=== PATIENT | female | born 1955 | race Caucasian/White ===

== ENCOUNTER 2018-02-07 09:18 | Emergency (ER) | payer BC ==
[2018-02-07 09:24] VITALS: RESP 16
[2018-02-07] MEDS ORDERED: SODIUM CHLORIDE 0.9% 1,000 ML IV STA (10:04)
[2018-02-07] MEDS ORDERED: MECLIZINE 12.5 MG TAB PO STA (10:08)
--- NOTE | 2018-02-07 10:09 | ED ---
General Adult HPI - General Chief complaint: Dizziness Stated complaint: Dizzy Time Seen by Provider: 02/07/18 10:02 Source: patient, RN notes reviewed Mode of arrival: ambulatory Limitations: no limitations - History of Present Illness Initial comments: Patient is 63-year-old female presented to the emergency room today with a chief complaint of dizziness. She states started this morning when she got out of bed. She states it was like the room was spinning. She states that it's worse when she stands up better when she is laying down. Patient states she's never had similar symptoms in the past. Patient denies any other complaints. She states sitting down here in the emergency room the dizziness has improved some but is still seems to be present. Patient denies any recent fever, chills, shortness of breath, chest pain, back pain, abdominal pain, nausea or vomiting, numbness or tingling, dysuria or hematuria, constipation or diarrhea, headaches or visual changes, or any other complaints. - Related Data Home Medications Medication Instructions Recorded Confirmed Aspirin [Adult Low Dose Aspirin EC] 81 mg PO DAILY 02/07/18 02/07/18 Cholecalciferol (Vitamin D3) 2,000 unit PO DAILY 02/07/18 02/07/18 [Vitamin D3] Allergies Allergy/AdvReac Type Severity Reaction Status Date / Time Sulfa (Sulfonamide Allergy Unknown Verified 02/07/18 10:11 Antibiotics) Review of Systems ROS Statement: Those systems with pertinent positive or pertinent negative responses have been documented in the HPI. ROS Other: All systems not noted in ROS Statement are negative. Past Medical History Past Medical History: No Reported History Additional Past Surgical History / Comment(s): cyst taken from back Past Psychological History: No Psychological Hx Reported Smoking Status: Never smoker Past Alcohol Use History: None Reported Past Drug Use History: None Reported General Exam - General Exam Comments Initial Comments: General: The patient is awake and alert, in no distress, and does not appear acutely ill. Eye: Pupils are equal, round and reactive to light. Extra-ocular movements are intact. No nystagmus. There is normal conjunctiva bilaterally. No signs of icterus. Ears, nose, mouth and throat: There are moist mucous membranes and no oral lesions. Neck: The neck is supple, there is no tenderness or JVD. Cardiovascular: There is a regular rate and rhythm. No murmur, rub or gallop is appreciated. Respiratory: Lungs are clear to auscultation, respirations are non-labored, breath sounds are equal. No wheezes, stridor, rales, or rhonchi. Musculoskeletal: Normal ROM, no tenderness. Sensation intact. Neurological: A&O x 3. CN II-XII intact, There are no obvious motor or sensory deficits. Coordination appears grossly intact. Speech is normal. Skin: Skin is warm and dry and no rashes or lesions are noted. Psychiatric: Cooperative, appropriate mood & affect, normal judgment. Limitations: no limitations Course Vital Signs 02/07/18 02/07/18 02/07/18 09:22 11:14 12:18 Temperature 97.4 F L Pulse Rate 82 86 Pulse Rate [ 81 Sitting] Pulse Rate [ 84 Standing] Pulse Rate [ 81 Supine] Respiratory 16 16 Rate Blood Pressure 154/74 171/83 Blood Pressure 150/87 [Sitting] Blood Pressure 171/85 [Standing] Blood Pressure 149/82 [Supine] O2 Sat by Pulse 97 Oximetry 02/07/18 02/07/18 13:38 15:08 Temperature Pulse Rate 88 82 Pulse Rate [ Sitting] Pulse Rate [ Standing] Pulse Rate [ Supine] Respiratory 16 16 Rate Blood Pressure 156/84 158/84 Blood Pressure [Sitting] Blood Pressure [Standing] Blood Pressure [Supine] O2 Sat by Pulse 100 98 Oximetry - Reevaluation(s) Reevaluation #1: 02/07/18 12:00 Patient was seen here the emergency room by Dr. North recommended repeat troponin. Patient resting comfortably. 02/07/18 14:30 Patient was seen here in the emergency room by Dr. North who recommended giving 25 mg losartan for elevated blood pressure. Emergency room. Patient still experiencing some dizziness. Will have CT head performed. Currently awaiting second troponin. EKG Findings - EKG Comments: EKG Findings:: First EKG performed at 1010: Shows normal sinus rhythm at 82 beats per minute. MT interval 162. QRS is 76. QT/QTC 376/439. No acute ST changes. Second EKG performed at 1428: Shows normal sinus rhythm at 78 beats per minute. MT interval is 158. QRS is 74. QT/QTC 358/408. No acute change. Medical Decision Making - Medical Decision Making Patient reexamined at this time shows no signs of distress resting comfortably. She's been up ambulating in the emergency room walking back and forth no dizziness no lightheadedness. His feeling well. Repeat EKG shows normal sinus rhythm compared to previous here in the emergency room. Repeat troponin was negative. CT of the brain negative. Case was discussed with attending physician Dr. Paz. Case was also discussed and seen here in the emergency room by Dr. North believes that his symptoms may be due to mildly elevated blood pressure in the emergency room and was given losartan. Patient discharged home with a prescription and advised to follow-up with Dr. North over the next week. - Lab Data Result diagrams: 02/07/18 09:55 18 09:55 Lab Results 02/07/18 02/07/1818 Range/Units 09:55 09:55 09:55 WBC 7.3 (3.8-10.6) k/uL RBC 4.69 (3.80-5.40) m/uL Hgb 14.3 (11.4-16.0) gm/dL Hct 44.4 (34.0-46.0) % MCV 94.5 (80.0-100.0) fL MCH 30.5 (25.0-35.0) pg MCHC 32.2 (31.0-37.0) g/dL RDW 13.0 (11.5-15.5) % Plt Count 340 (150-450) k/uL Neutrophils % (Manual) 79 % Lymphocytes % (Manual) 16 % Monocytes % (Manual) 5 % Basophils % (Manual) 1 % Neutrophils # (Manual) 5.77 (1.3-7.7) k/uL Lymphocytes # (Manual) 1.17 (1.0-4.8) k/uL Monocytes # (Manual) 0.37 (0-1.0) k/uL Basophils # (Manual) 0.07 (0-0.2) k/uL Nucleated RBCs 0 (0-0) /100 WBC RBC Morphology Normal PT (9.0-12.0) sec INR (<1.2) APTT (22.0-30.0) sec D-Dimer (<0.60) mg/L FEU Sodium 144 (137-145) mmol/L Potassium 4.4 (3.5-5.1) mmol/L Chloride 108 H (98-107) mmol/L Carbon Dioxide 23 (22-30) mmol/L Anion Gap 13 mmol/L BUN 12 (7-17) mg/dL Creatinine 0.61 (0.52-1.04) mg/dL Est GFR (CKD-EPI)AfAm >90 (>60 ml/min/1.73 sqM) Est GFR (CKD-EPI)NonAf >90 (>60 ml/min/1.73 sqM) Glucose 120 H (74-99) mg/dL Calcium 9.5 (8.4-10.2) mg/dL Total Bilirubin 0.4 (0.2-1.3) mg/dL AST 23 (14-36) U/L ALT 29 (9-52) U/L Alkaline Phosphatase 66 (38-126) U/L Total Creatine Kinase 54 (30-135) U/L CK-MB (CK-2) 0.6 (0.0-2.4) ng/mL CK-MB (CK-2) Rel Index 1.1 Troponin I <0.012 (0.000-0.034) ng/mL Total Protein 7.4 (6.3-8.2) g/dL Albumin 4.3 (3.5-5.0) g/dL Triglycerides (<150) mg/dL Cholesterol (<200) mg/dL LDL Cholesterol, Calc (0-99) mg/dL HDL Cholesterol (40-60) mg/dL Urine Color Urine Appearance (Clear) Urine pH (5.0-8.0) Ur Specific [place] (1.001-1.035) Urine Protein (Negative) Urine Glucose (UA) (Negative) Urine Ketones (Negative) Urine Blood (Negative) Urine Nitrite (Negative) Urine Bilirubin (Negative) Urine Urobilinogen (<2.0) mg/dL Ur Leukocyte Esterase (Negative) Urine RBC (0-5) /hpf Urine WBC (0-5) /hpf Ur Squamous Epith Cells (0-4) /hpf 02/07/1818 02/07/18 Range/Units 09:55 09:55 11:30 WBC (3.8-10.6) k/uL RBC (3.80-5.40) m/uL Hgb (11.4-16.0) gm/dL Hct (34.0-46.0) % MCV (80.0-100.0) fL MCH (25.0-35.0) pg MCHC (31.0-37.0) g/dL RDW (11.5-15.5) % Plt Count (150-450) k/uL Neutrophils % (Manual) % Lymphocytes % (Manual) % Monocytes % (Manual) % Basophils % (Manual) % Neutrophils # (Manual) (1.3-7.7) k/uL Lymphocytes # (Manual) (1.0-4.8) k/uL Monocytes # (Manual) (0-1.0) k/uL Basophils # (Manual) (0-0.2) k/uL Nucleated RBCs (0-0) /100 WBC RBC Morphology PT 10.3 (9.0-12.0) sec INR 1.0 (<1.2) APTT 25.5 (22.0-30.0) sec D-Dimer 0.28 (<0.60) mg/L FEU Sodium (137-145) mmol/L Potassium (3.5-5.1) mmol/L Chloride (98-107) mmol/L Carbon Dioxide (22-30) mmol/L Anion Gap mmol/L BUN (7-17) mg/dL Creatinine (0.52-1.04) mg/dL Est GFR (CKD-EPI)AfAm (>60 ml/min/1.73 sqM) Est GFR (CKD-EPI)NonAf (>60 ml/min/1.73 sqM) Glucose (74-99) mg/dL Calcium (8.4-10.2) mg/dL Total Bilirubin (0.2-1.3) mg/dL AST (14-36) U/L ALT (9-52) U/L Alkaline Phosphatase (38-126) U/L Total Creatine Kinase (30-135) U/L CK-MB (CK-2) (0.0-2.4) ng/mL CK-MB (CK-2) Rel Index Troponin I (0.000-0.034) ng/mL Total Protein (6.3-8.2) g/dL Albumin (3.5-5.0) g/dL Triglycerides 92 (<150) mg/dL Cholesterol 240 H (<200) mg/dL LDL Cholesterol, Calc 171 H (0-99) mg/dL HDL Cholesterol 51 (40-60) mg/dL Urine Color Light Yellow Urine Appearance Clear (Clear) Urine pH 6.5 (5.0-8.0) Ur Specific [place] 1.012 (1.001-1.035) Urine Protein Negative (Negative) Urine Glucose (UA) Negative (Negative) Urine Ketones Negative (Negative) Urine Blood Trace H (Negative) Urine Nitrite Negative (Negative) Urine Bilirubin Negative (Negative) Urine Urobilinogen <2.0 (<2.0) mg/dL Ur Leukocyte Esterase Negative (Negative) Urine RBC 1 (0-5) /hpf Urine WBC 1 (0-5) /hpf Ur Squamous Epith Cells 2 (0-4) /hpf 02/07/18 Range/Units 14:20 WBC (3.8-10.6) k/uL RBC (3.80-5.40) m/uL Hgb (11.4-16.0) gm/dL Hct (34.0-46.0) % MCV (80.0-100.0) fL MCH (25.0-35.0) pg MCHC (31.0-37.0) g/dL RDW (11.5-15.5) % Plt Count (150-450) k/uL Neutrophils % (Manual) % Lymphocytes % (Manual) % Monocytes % (Manual) % Basophils % (Manual) % Neutrophils # (Manual) (1.3-7.7) k/uL Lymphocytes # (Manual) (1.0-4.8) k/uL Monocytes # (Manual) (0-1.0) k/uL Basophils # (Manual) (0-0.2) k/uL Nucleated RBCs (0-0) /100 WBC RBC Morphology PT (9.0-12.0) sec INR (<1.2) APTT (22.0-30.0) sec D-Dimer (<0.60) mg/L FEU Sodium (137-145) mmol/L Potassium (3.5-5.1) mmol/L Chloride (98-107) mmol/L Carbon Dioxide (22-30) mmol/L Anion Gap mmol/L BUN (7-17) mg/dL Creatinine (0.52-1.04) mg/dL Est GFR (CKD-EPI)AfAm (>60 ml/min/1.73 sqM) Est GFR (CKD-EPI)NonAf (>60 ml/min/1.73 sqM) Glucose (74-99) mg/dL Calcium (8.4-10.2) mg/dL Total Bilirubin (0.2-1.3) mg/dL AST (14-36) U/L ALT (9-52) U/L Alkaline Phosphatase (38-126) U/L Total Creatine Kinase (30-135) U/L CK-MB (CK-2) (0.0-2.4) ng/mL CK-MB (CK-2) Rel Index Troponin I 0.016 (0.000-0.034) ng/mL Total Protein (6.3-8.2) g/dL Albumin (3.5-5.0) g/dL Triglycerides (<150) mg/dL Cholesterol (<200) mg/dL LDL Cholesterol, Calc (0-99) mg/dL HDL Cholesterol (40-60) mg/dL Urine Color Urine Appearance (Clear) Urine pH (5.0-8.0) Ur Specific [place] (1.001-1.035) Urine Protein (Negative) Urine Glucose (UA) (Negative) Urine Ketones (Negative) Urine Blood (Negative) Urine Nitrite (Negative) Urine Bilirubin (Negative) Urine Urobilinogen (<2.0) mg/dL Ur Leukocyte Esterase (Negative) Urine RBC (0-5) /hpf Urine WBC (0-5) /hpf Ur Squamous Epith Cells (0-4) /hpf Disposition Clinical Impression: Elevated blood pressure reading, Dizziness Disposition: HOME SELF-CARE Condition: Good Instructions: Dizziness (ED) Additional Instructions: Please use blood pressure medication as discussed. Please follow-up with family doctor in the next 2 days of symptoms have not improved. Please return to emergency room if the symptoms increase or worsen or for any other concerns. Is patient prescribed a controlled substance at d/c from ED?: No Referrals: Mariya Matamoros MD [Primary Care Provider] - 1-2 days Time of Disposition: 16:16
[2018-02-07 10:41] LABS: HCT 44.4 % (34.0-46.0); HGB 14.3 gm/dL (11.4-16.0); MCH 30.5 pg (25.0-35.0); MCHC 32.2 g/dL (31.0-37.0); MCV 94.5 fL (80.0-100.0); Mean Platelet Volume 6.6; Platelet Count 340 k/uL (150-450); RBC 4.69 m/uL (3.80-5.40); WBC 7.3 k/uL (3.8-10.6)
[2018-02-07 10:44] LABS: ALT 29 U/L (9-52); AST 23 U/L (14-36); Albumin 4.3 g/dL (3.5-5.0); Alkaline Phosphatase 66 U/L (38-126); Anion Gap 13 mmol/L; Blood Urea Nitrogen 12 mg/dL (7-17); Calcium 9.5 mg/dL (8.4-10.2); Carbon Dioxide 23 mmol/L (22-30); Chloride 108 mmol/L (98-107); Glucose 120 mg/dL (74-99); Potassium 4.4 mmol/L (3.5-5.1); Sodium 144 mmol/L (137-145); Total Bilirubin 0.4 mg/dL (0.2-1.3); Total Protein 7.4 g/dL (6.3-8.2)
[2018-02-07 10:51] LABS: Creatine Kinase 54 U/L (30-135)
[2018-02-07 10:57] LABS: D-Dimer 0.28 mg/L FEU (<0.60); Partial Thromboplastin Time 25.5 sec (22.0-30.0); Prothrombin Time 10.3 sec (9.0-12.0)
[2018-02-07 11:03] LABS: Basophils # (M) 0.07 k/uL (0-0.2); Creatine Kinase MB 0.6 ng/mL (0.0-2.4); Lymphocytes # (M) 1.17 k/uL (1.0-4.8); Monocytes # (M) 0.37 k/uL (0-1.0); Neutrophils # (M) 5.77 k/uL (1.3-7.7); Neutrophils % (M) 79 %; Nucleated Red Blood Cells 0 /100 WBC (0-0); Total Cells Counted 200; Troponin I <0.012 ng/mL (0.000-0.034)
[2018-02-07 11:53] LABS: Appearance,Urine Clear (Clear); Bilirubin,Urine Negative (Negative); Blood,Urine Trace (Negative); Color,Urine Light Yellow; Glucose,Urine (UA) Negative (Negative); Ketones,Urine Negative (Negative); Leukocyte Esterase,Urine Negative (Negative); Nitrite,Urine Negative (Negative); PH, Urine 6.5 (5.0-8.0); Protein,Urine Negative (Negative); RBC,Urine 1 /hpf (0-5); Specific Gravity,Urine 1.012 (1.001-1.035); Squamous Epithelial Cell,Urine 2 /hpf (0-4); Urobilinogen,Urine <2.0 mg/dL (<2.0); WBC,Urine 1 /hpf (0-5)
[2018-02-07] MEDS ORDERED: DIAZEPAM 5 MG TAB PO STA (12:01)
[2018-02-07] MEDS ORDERED: METOCLOPRAMIDE 5 MG/ML 2 ML VIAL IVP STA (12:02)
[2018-02-07] MEDS ORDERED: LOSARTAN 25 MG TAB PO STA (14:37)
--- NOTE | 2018-02-07 14:47 | P.CRDCN ---
History of Present Illness History of present illness: This is Dr. Lawson dictating a consult on this patient The patient was interviewed and examined by me IMPRESSION / ASSESSMENT: Persistent dizziness no headache no cardiac symptoms no blurring of vision D-dimer is normal cardiac enzymes are normal, 2 serial ECGs are normal no bradycardia/ arrhythmias Elevated blood pressures, likely hypertension newly diagnosed Normal cranial nerve and motor exam In 2013 her LDL was 129 mm/dL. PLAN: 2 serial cardiac enzymes, serial ECGs Observation for at least [address], discussed with ER staff Losartan 25 mg by mouth daily. 1 dose now and I gave her a prescription If the second set of enzymes is normal, head CT is normal and she ambulates in the hallways and is stable, she will go home and follow-up with me in about 2 weeks Home blood pressure monitoring Losartan 25 g by mouth daily, low salt diet Lipid panel added HPI Patient presented with dizziness as if she was spinning and found it difficult to get out of bed this morning. She came to the emergency room for these symptoms. She denies chest discomfort heaviness tightness pressure any angina like symptoms. No shortness of breath. No loss of consciousness. No palpitations. No headache no blurred vision She did admit to eating salty foods over the weekend The only abnormality found on examination and labs is that her blood pressure was elevated consistently on repeat measurements. She does not carry a diagnosis of hypertension from before Repeat blood pressure after a few hours his 150 mmHg systolic ROS: No fever chills or rigors, no cough, phlegm or expectoration, no nausea, vomiting or diarrhea, no hematuria, dysuria, no musculoskeletal complaints, no strokes or seizures, no skin lesions. EXAMINATION On examination no JVD no carotid bruits no lower extremity edema line abdomen is soft nontender Heart sounds are completely normal normal S1 normal S2 no murmurs or gallops no rub Breath sounds are clear no adventitious sounds no rhonchi no crackles With head movements as well as with change in body position there was a mild production of her symptoms Normal cranial nerve exam. No nystagmus No motor deficits REVIEW OF LABS, ECG Labs were reviewed hemoglobin 14.3, white count normal at 7.3, platelet count 340,000 D-dimer 0.28 Electrolytes are normal, BUN and creatinine normal Renal function tests are normal First troponin is normal First 12-lead ECG shows sinus rhythm with normal ST segments Second ECG unchanged, normal ST segments Past Medical History Past Medical History: No Reported History Additional Past Surgical History / Comment(s): cyst taken from back Past Psychological History: No Psychological Hx Reported Smoking Status: Never smoker Past Alcohol Use History: None Reported Past Drug Use History: None Reported Medications and Allergies Home Medications Medication Instructions Recorded Confirmed Type Aspirin [Adult Low Dose Aspirin EC] 81 mg PO DAILY 02/07/18 02/07/18 History Cholecalciferol (Vitamin D3) 2,000 unit PO DAILY 02/07/18 02/07/18 History [Vitamin D3] Allergies Allergy/AdvReac Type Severity Reaction Status Date / Time Sulfa (Sulfonamide Allergy Unknown Verified 02/07/18 10:11 Antibiotics) Physical Exam Vitals: Vital Signs Temp Pulse Pulse Pulse Pulse Resp BP 02/07/18 13:38 88 16 156/84 02/07/18 12:18 86 16 171/83 02/07/18 11:14 81 84 81 02/07/18 09:22 97.4 F L 82 16 154/74 BP BP BP Pulse Ox 02/07/18 13:38 100 02/07/18 12:18 02/07/18 11:14 150/87 171/85 149/82 02/07/18 09:22 97 Intake and Output 02/06/18 02/07/18 02/07/18 22:59 06:59 14:59 Other: Weight 95.254 kg Results 02/07/18 09:55 02/07/18 09:55 Cardiac Enzymes 02/07/18 02/07/18 Range/Units 09:55 09:55 AST 23 (14-36) U/L CK-MB (CK-2) 0.6 (0.0-2.4) ng/mL Troponin I <0.012 (0.000-0.034) ng/mL Coagulation 02/07/18 Range/Units 09:55 PT 10.3 (9.0-12.0) sec APTT 25.5 (22.0-30.0) sec CBC 02/07/18 Range/Units 09:55 WBC 7.3 (3.8-10.6) k/uL RBC 4.69 (3.80-5.40) m/uL Hgb 14.3 (11.4-16.0) gm/dL Hct 44.4 (34.0-46.0) % Plt Count 340 (150-450) k/uL Comprehensive Metabolic Panel 02/07/18 Range/Units 09:55 Sodium 144 (137-145) mmol/L Potassium 4.4 (3.5-5.1) mmol/L Chloride 108 H (98-107) mmol/L Carbon Dioxide 23 (22-30) mmol/L BUN 12 (7-17) mg/dL Creatinine 0.61 (0.52-1.04) mg/dL Glucose 120 H (74-99) mg/dL Calcium 9.5 (8.4-10.2) mg/dL AST 23 (14-36) U/L ALT 29 (9-52) U/L Alkaline Phosphatase 66 (38-126) U/L Total Protein 7.4 (6.3-8.2) g/dL Albumin 4.3 (3.5-5.0) g/dL Intake and Output 02/06/18 02/07/18 02/07/18 22:59 06:59 14:59 Other: Weight 95.254 kg Patient Weight 02/08/18 06:59 Weight 95.254 kg 02/07/18 09:55 02/07/18 09:55
--- NOTE | 2018-02-07 15:01 | CT ---
EXAMINATION TYPE: CT brain wo con DATE OF EXAM: 02/07/2018 COMPARISON: None HISTORY: Dizziness. CT DLP: [address] of the brain was performed. The ventricles, basal cisterns and sulci overlying the cerebral convexities demonstrate mild enlargem ent. There is no evidence for intracranial hemorrhage or sulcal effacement. There is decreased attenuation about the periventricular white matter and deep white matter of both c erebral hemispheres, compatible with chronic small vessel ischemia. Differential diagnosis does inclu de demyelination. No mass effects are seen.No midline shift. Osseous calvarium is intact. If symptoms persist consider MRI. IMPRESSION: 1. Age related atrophic and chronic small vessel ischemic change without acute intracranial process s een at this time.
[2018-02-07 15:21] LABS: Cholesterol 240 mg/dL (<200); HDL Cholesterol 51 mg/dL (40-60); LDL Cholesterol,Calculated 171 mg/dL (0-99); Triglycerides 92 mg/dL (<150)
[2018-02-07 16:26] VITALS: BP 170/80; PULSE 72; TEMP 98
== END 2018-02-07 16:40 | disposition home or self-care (01) ==
LOC: EC 09:18
DX: R42 Dizziness and giddiness (principal); R03.0 Elevated blood-pressure reading, without diagnosis of hypertension; Z79.82 Long term (current) use of aspirin; Z88.2 Allergy status to sulfonamides; Z53.29 Procedure and treatment not carried out because of patient's decision for other reasons
CPT/HCPCS: 36415; 70450; 80053; 80061; 81001; 82550; 82553; 84484; 85025; 85379; 85610; 85730; 93005; 96360; 99285